=== PATIENT | female | born 1955 | race Caucasian/White ===

== ENCOUNTER 2019-12-08 19:59 | Emergency (ER) | payer OTHER ==
[~2019-12-08] VITALS: Ht 162.6 cm; Wt 56.7 kg
[~2019-12-08 19:59] MED LIST: ENALAPRIL MALEA10 M1 PO; HYDROCHLOROTHIA25 M1 PO; KEFLEX500 MG PO; VERAPAMIL HCL120 M2 PO; VERAPAMIL2.5 MG/1 M PO
[2019-12-08 20:56] LABS: HEMATOCRIT 26.2 % (37.0-47.0); HEMOGLOBIN 9.7 gm/dL (12.0-15.0); MCH 35.2 pg (26.0-34.0); MCHC 37.1 g/dL (28.0-37.0); MCV 94.9 fL (80.0-100.0); PLATELET COUNT 226 thou/uL (150-400); RBC 2.76 mil/uL (4.20-5.00); RDW 13.2 % (10.5-14.5); WBC 6.3 thou/uL (4.0-11.0)
[2019-12-08 21:14] LABS: CALCIUM 8.5 mg/dL (8.5-10.1); CREATININE 0.7 mg/dL (0.6-1.0); POTASSIUM 3.1 mmol/L (3.5-5.1)
[2019-12-08 21:19] LABS: ALBUMIN 3.3 g/dL (3.4-5.0); TOTAL BILIRUBIN 0.7 mg/dL (0.2-1.0); TOTAL PROTEIN 6.5 g/dL (6.4-8.2)
[2019-12-08 21:47] LABS: URINE BILIRUBIN NEGATIVE (Negative); URINE BLOOD NEGATIVE (Negative); URINE CLARITY CLEAR; URINE COLOR YELLOW; URINE GLUCOSE-RANDOM* NEGATIVE (Negative); URINE KETONES NEGATIVE (Negative); URINE LEUKOCYTES-REFLEX NEGATIVE (Negative); URINE NITRITE-REFLEX NEGATIVE (Negative); URINE PROTEIN (DIPSTICK) NEGATIVE (Negative); URINE SPECIFIC GRAVITY 1.015 (1.005-1.035); URINE UROBILINOGEN 0.2 E.U./dl (0.2-1.0)
[2019-12-08 22:18] LABS: ABSOLUTE NEUTROPHILS 3.6 thou/uL (1.4-8.2)
[2019-12-08 22:20] LABS: PLATELET ESTIMATE NORMAL
[2019-12-08 22:41] LABS: APTT 28.1 Seconds (24.5-32.8); PROTIME 10.3 Seconds (9.3-11.4)
[2019-12-09] MEDS ORDERED: MOBIC15 MG PO (02:25)
[2019-12-09 02:43] VITALS: BP 144/75
--- NOTE | 2019-12-09 07:55 | EKG ---
[facility] [place] [address] ELECTROCARDIOGRAM REPORT Name: LYN JONES Room #: DEP [facility]#: [id number] Admission: 12/08/19 Attend Phys: Discharge: 12/09/19 Date of : 59 Report #: [id number] THIS REPORT FOR: cc: Gerardo Oh MD, Steven E. MD Santiago, Patrick MD [facility] ~ THIS REPORT FOR: //name// [facility] ED Test Date: 2019-12-08 Test Time: 20:11:47 Pat Name: LYN JONES Department: Room: Gender: F [employer] Operator: MARIELY : 1955 Requested By: Lynne Garcia Order Number: [id number] MD: Sharif Lancaster Measurements Intervals [place] Rate: 103 P: 66 TN: 130 QRS: 57 QRSD: 91 T: 47 QT: 396 QTc: 519 Interpretive Statements Sinus tachycardia Probable left ventricular hypertrophy Prolonged QT interval Baseline wander in lead(s) V5 No previous ECG available for comparison Electronically Signed On 12-09-2019 7:55:31 CDT by Sharif Lancaster [email or web address] <ELECTRONICALLY SIGNED> By: Sharif Lancaster MD, FACC 12/09/19 0755 10 10 Sharif Lancaster MD, FACC /EPI
== END 2019-12-09 02:44 | disposition home or self-care (01) ==
LOC: ER 19:59
PROVIDERS: Emergency Medicine
DX: S30.0XXA Contusion of lower back and pelvis, initial encounter (principal); F10.10 Alcohol abuse, uncomplicated; I10 Essential (primary) hypertension; F17.210 Nicotine dependence, cigarettes, uncomplicated; Z79.899 Other long term (current) drug therapy; Z88.2 Allergy status to sulfonamides; W01.0XXA Fall on same level from slipping, tripping and stumbling without subsequent striking against object, initial encounter; Y93.89 Activity, other specified; Y92.89 Other specified places as the place of occurrence of the external cause; Y99.8 Other external cause status; Y90.9 Presence of alcohol in blood, level not specified